=== PATIENT | female | born 1990 | race Caucasian/White ===

== ENCOUNTER 2017-01-13 14:55 | Outpatient (CLI) | payer MEDICAID ==
[~2017-01-13] VITALS: Ht 152.4 cm; Wt 65.9 kg
[~2017-01-13 14:55] MED LIST: LORA-441 PO; PRENATALS
[2017-01-13 15:16] VITALS: Ht 152.4 cm; Wt 65.9 kg
[2017-01-13 15:17] VITALS: BP 101/69; PULSE 85; RESP 20
--- NOTE | 2017-01-13 15:52 | PN ---
Date/Time of Note Date/Time of Note DATE: 01/13/17 TIME: 15:50 OB Subjective Subjective Subjective Patient is 3 para 1 at 28+2 weeks of gestation She presents with vaginal discharge/mucous, she reports no itching and no odor She has no other complaints OB Objective Objective Objective Patient complaining of vaginal discharge HEENT: WNL Heart: Rhythm Normal Lungs: Clear, Equal Abdomen: WNL Extremities: Normal Reflexes: Normal Heart Rate: 140's Accelerations: Accelerations Present Decelerations: No Decelerations Contractions on Admission: None OB Assessment/Plan Other Assessment: 28+ weeks of gestation with vaginal discharge Other plan: UA- neg Vaginal culture- pending Discharge home Follow-up with OB in 2-3 days ANILA SHEEHAN MD Jan 13, 2017 15:52
[2017-01-13 16:18] LABS: ADD UMIC YES; UR BILIRUBIN (Dip) NEGATIVE (NEGATIVE); UR BLOOD (Dip) 1+ (NEGATIVE); UR CLARITY CLOUDY (CLEAR); UR COLOR LT. YELLOW (YELLOW); UR GLUCOSE (Dip) NEGATIVE (NEGATIVE); UR KETONES (Dip) NEGATIVE (NEGATIVE); UR LEUKOCYTE ESTERASE (Dip) 2+ (NEGATIVE); UR NITRITE (Dip) NEGATIVE (NEGATIVE); UR TOTAL PROTEIN (Dip) NEGATIVE (NEGATIVE); UR UROBILINOGEN (Dip) 0.2 E.U./dL (0.1-1.0)
[2017-01-13 16:32] LABS: UR SQUAMOUS EPITHELIAL CELL MANY
[2017-01-13 16:33] LABS: UR AMORPHOUS CRYSTAL MODERATE; UR BACTERIA FEW
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
== END 2017-01-13 19:35 | disposition home or self-care (01) ==
LOC: OBT 14:55 → L-D 14:55 → OBT 19:35
PROVIDERS: ATTEND Obstetrics & Gynecology
DX: O26.893 Other specified pregnancy related conditions, third trimester (principal); N89.8 Other specified noninflammatory disorders of vagina; Z3A.28 28 weeks gestation of pregnancy
CPT/HCPCS: 81001; 87075; Z7500; 81003; G0463

== ENCOUNTER 2017-03-07 15:17 | Outpatient (CLI) | payer MEDICAID ==
[~2017-03-07] VITALS: Ht 152.4 cm; Wt 70.0 kg
[2017-03-07 15:36] VITALS: Ht 152.4 cm; Wt 70.0 kg
[2017-03-07 15:37] VITALS: BP 113/67; PULSE 103
[2017-03-07] MEDS ORDERED: PRENAT PO (15:38)
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
[2017-03-07] MEDS ORDERED: ACETAMINOPHEN 325 MG TAB PO ONE (20:00)
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
== END 2017-03-07 20:39 | disposition home or self-care (01) ==
LOC: OBT 15:17 → L-D 15:19 → OBT 20:39
PROVIDERS: ATTEND Obstetrics & Gynecology
DX: O26.893 Other specified pregnancy related conditions, third trimester (principal); Z87.828 Personal history of other (healed) physical injury and trauma; Z3A.37 37 weeks gestation of pregnancy
CPT/HCPCS: 76818; Z7500; Z7610; G0463